=== PATIENT | female | born 1945 | race Caucasian/White ===

== ENCOUNTER 2016-08-21 12:56 | Emergency (ER) | payer MEDICARE, BC ==
[2016-08-21] MEDS ORDERED: KETOROLAC TROMETHAMINE 30 MG/ML SOL IV ONE (13:01)
[2016-08-21 13:04] VITALS: BP 234/78; PULSE 68; RESP 20; TEMP 97.8; O2SAT 97
[2016-08-21 13:16] LABS: BASOPHILS % (AUTO) 1 % (0-3); EOSINOPHILS % (AUTO) 1 % (0-9); HEMATOCRIT 41 % (35-47); MEAN CORPUSCULAR HGB CONC 35.5 gm/dl (32.0-36.0); MEAN CORPUSCULAR VOLUME 87 fL (81-99); MONOCYTES % (AUTO) 4.4 % (0-12)
[2016-08-21] MEDS ORDERED: KETOROLAC TROMETHAMINE 30 MG/ML SOL ONE (13:25)
[2016-08-21 13:29] LABS: ALBUMIN 3.7 gm/dl (3.4-5.0); CALCIUM 8.9 mg/dl (8.5-10.1); POTASSIUM 4.2 mMol/L (3.5-5.1)
[2016-08-21 14:02] LABS: APPEARANCE,URINE SL CLOUDY; COLOR,URINE DARK YELLOW
[2016-08-21 14:03] LABS: BILIRUBIN,URINE 1+ (NEGATIVE); GLUCOSE, URINE (UA) NEGATIVE (NEGATIVE); KETONES,URINE 1+ (NEGATIVE); LEUKOCYTE ESTERASE ,URINE NEGATIVE (NEGATIVE); NITRATE,URINE NEGATIVE (NEGATIVE); OCCULT BLOOD,URINE 1+ (NEG-TRACE); RBC,URINE 0-2 (0-3AV/HPF); UROBILINOGEN,URINE NORMAL (0.2-1.0 EU)
[2016-08-21 14:04] LABS: ICTOTEST,URINE NEGATIVE (NEGATIVE)
== END 2016-08-21 16:00 | disposition home or self-care (01) | DRG 694 ==
LOC: ED 12:56
DX: N20.0 Calculus of kidney (principal)
CPT/HCPCS: 36415; 74176; 80053; 81001; 85025; 99283; J1885